=== PATIENT | female | born 1950 | race African-American/Black ===

== ENCOUNTER 2019-03-26 20:06 | Inpatient (IN) | payer MEDICAID, OTHER ==
[~2019-03-26] VITALS: Ht 160 cm; Wt 110.2 kg
[~2019-03-26 20:06] MED LIST: AMLO10TA88 PO; ARIP15TA2 PO; ASPI-1155 PO; DIVA-74 PO; GLYB5TAB7 PO; HYDR50TA3 PO; METO-544 PO; SIMV40TA5 PO; VALS320T2 PO
[2019-03-26 20:16] VITALS: BP_SYST 152
[2019-03-26] MEDS ORDERED: HAL5 PO (20:38)
[2019-03-26] MEDS ORDERED: BENZ1TAB7 PO (20:38)
[2019-03-26] MEDS ORDERED: DONE5TAB26 PO (20:38)
[2019-03-26] MEDS ORDERED: ISOS60TA4 PO (20:38)
[2019-03-26] MEDS ORDERED: HYDR-4039 PO (20:38)
[2019-03-26] MEDS ORDERED: FLUT1DIS3 IH (20:38)
[2019-03-26] MEDS ORDERED: LISI40TA4 PO (20:38)
[2019-03-26] MEDS ORDERED: SPIR50TA5 PO (20:38)
[2019-03-26] MEDS ORDERED: LABE100T5 PO (20:38)
[2019-03-26 20:43] LABS: BASOPHILS # (AUTO) 0.1 K/uL (0.0-0.2); EOSINOPHILS # (AUTO) 0.2 K/uL (0.0-0.4); HEMATOCRIT 37.4 % (36-48); HEMOGLOBIN 12.2 g/dL (12.0-16.0); LYMPHOCYTES # (AUTO) 1.8 K/uL (1.0-5.5); LYMPHOCYTES % (AUTO) 17.8 % (20.5-51.5); MEAN CORPUSCULAR HEMOGLOBIN 28 pg (27-31); MEAN CORPUSCULAR HGB CONC 33 % (32-36); MEAN CORPUSCULAR VOLUME 85 fL (79.0-98.0); MONOCYTES # (AUTO) 0.7 K/uL (0.0-1.0); MONOCYTES % (AUTO) 7.2 % (1.7-9.3); NEUTROPHILS # (AUTO) 7.1 K/uL (1.8-7.7); PLATELET COUNT (AUTO) 315 K/uL (130-430); RED BLOOD CELL COUNT(AUTO) 4.43 MIL/uL (4.2-6.2); RED CELL DISTRIBUTION WIDTH 14.6 % (9.0-15.0); WHITE BLOOD COUNT (AUTO) 9.9 K/uL (4.8-10.8)
[2019-03-26] MEDS ORDERED: NACL 0.9% 1,000 ML IV ONE (21:00)
[2019-03-26 21:08] LABS: CALCIUM 9.9 mg/dL (8.4-11.0); CREATININE 1.22 mg/dL (0.55-1.30)
[2019-03-26 21:13] LABS: ALBUMIN 3.6 g/dL (3.4-4.8); TOTAL BILIRUBIN 0.9 mg/dL (0.0-1.0)
[2019-03-26] MEDS ORDERED: hydrALAZINE HCL 20 MG/ML VIAL IVP ONE (21:45)
[2019-03-26 22:25] LABS: CKMB RELATIVE INDEX 1.2 (0.0-2.9); CREATINE KINASE MB 2.9 ng/mL (0-3.6)
[2019-03-27 00:50] LABS: BILIRUBIN,URINE 1+ (NEGATIVE); BLOOD, URINE NEGATIVE (NEGATIVE); CLARITY/URINE CLEAR (CLEAR); COLOR,URINE ORANGE (YELLOW); GLUCOSE,URINE 1+ (NEGATIVE); KETONES,URINE NEGATIVE (NEGATIVE); LEUKOCYTE ESTERASE ,URINE NEGATIVE (NEGATIVE); NITRITE, URINE NEGATIVE (NEGATIVE); PROTEIN URINE NEGATIVE (NEGATIVE); UROBILINOGEN,URINE 0.2 (0.2-1.0)
[2019-03-27] MEDS ORDERED: hydrALAZINE HCL 20 MG/ML VIAL IVP ONE ×2 (01:15→01:45)
[2019-03-27] MEDS ORDERED: ONDANSETRON HCL 4 MG/2 ML VIAL IVP ONE (02:15)
[2019-03-27] MEDS ORDERED: HAL5 PO (02:58)
[2019-03-27] MEDS ORDERED: ALBMDI INH (02:58)
[2019-03-27] MEDS ORDERED: INSU100I28 SQ (02:58)
[2019-03-27] MEDS ORDERED: INSU100V9 SQ (02:58)
[2019-03-27] MEDS ORDERED: FLUT1DIS3 IH (02:58)
[2019-03-27] MEDS ORDERED: LABETALOL HCL 200 MG in NS 250 ML IV PRN (03:45)
[2019-03-27] MEDS ORDERED: LABETALOL 100 MG/ 20ML VIAL ONE (03:58)
[2019-03-27 04:38] VITALS: BP_SYST 154
[2019-03-27 08:15] VITALS: BP_SYST 151
[2019-03-27] MEDS: LABETALOL HCL 100 MG TABLET PO SCH ×2 (08:39→22:37)
[2019-03-27] MEDS: LISINOPRIL 20 MG TABLET PO SCH (08:39)
[2019-03-27] MEDS: SPIRONOLACTONE 50 MG TABLET (ALDACTONE) PO SCH (08:40)
[2019-03-27] MEDS: BENZTROPINE MESYLATE 1 MG TABLET PO SCH ×2 (08:40→22:34)
[2019-03-27] MEDS: DONEPEZIL HCL 5 MG TABLET (ARICEPT) PO SCH (08:40)
[2019-03-27] MEDS: hydrALAZINE HCL 25 MG TABLET PO SCH ×4 (08:41→22:38)
[2019-03-27] MEDS: ISOSORBIDE MONONITRATE 30 MG TAB.ER.24H PO SCH (08:41)
[2019-03-27] MEDS: HALOPERIDOL 5 MG TABLET (HALDOL) PO SCH (08:42)
[2019-03-27] MEDS ORDERED: NON-FORMULARY MEDICATION (Donepezil Hcl 10 MG) PO SCH (09:00)
[2019-03-27] MEDS ORDERED: BENZTROPINE MESYLATE 1 MG PO SCH (09:00)
[2019-03-27] MEDS: ACETAMINOPHEN 650 MG/20.3 ML UDC PO PRN (10:54)
[2019-03-27 12:28] VITALS: BP_SYST 147
[2019-03-27] MEDS ORDERED: IPRATROPIUM/ALBUTEROL SULFATE 3 ML AMPUL.NEB (DUONEB) INH PRN (13:45)
[2019-03-27] MEDS: ASPIRIN 81 MG TABLET(ECOTRIN) PO ONE ×2 (14:31→14:37)
[2019-03-27 16:25] VITALS: BP_SYST 145
[2019-03-27 17:46] VITALS: BP_SYST 145
[2019-03-27 20:00] VITALS: BP_SYST 163
[2019-03-27] MEDS: cloNIDine HCL 0.1 MG TABLET PO PRN (20:41)
[2019-03-27] MEDS ORDERED: HALOPERIDOL 5 MG TABLET (HALDOL) PO SCH (21:00)
[2019-03-28 00:25] VITALS: BP_SYST 169
[2019-03-28] MEDS: ACETAMINOPHEN 650 MG/20.3 ML UDC PO PRN ×3 (02:44→16:26)
[2019-03-28] MEDS ORDERED: INSULIN ASPART 100 UNITS/ML, 10 ML VIAL (NovoLOG) SUBCUT PRN (02:45)
[2019-03-28] MEDS: cloNIDine HCL 0.1 MG TABLET PO PRN (02:50)
[2019-03-28] MEDS ORDERED: DEXTROSE 50% JECT 50 ML DISP.SYRIN IVP PRN (03:00)
[2019-03-28 06:02] LABS: BASOPHILS # (AUTO) 0.1 K/uL (0.0-0.2); BASOPHILS % (AUTO) 0.9 % (0.0-2.0); EOSINOPHILS # (AUTO) 0.3 K/uL (0.0-0.4); EOSINOPHILS % (AUTO) 2.9 % (0.0-4.0); HEMATOCRIT 35.8 % (36-48); HEMOGLOBIN 11.7 g/dL (12.0-16.0); LYMPHOCYTES # (AUTO) 2.1 K/uL (1.0-5.5); LYMPHOCYTES % (AUTO) 23.1 % (20.5-51.5); MEAN CORPUSCULAR HEMOGLOBIN 28 pg (27-31); MEAN CORPUSCULAR HGB CONC 33 % (32-36); MEAN CORPUSCULAR VOLUME 85 fL (79.0-98.0); MONOCYTES # (AUTO) 0.6 K/uL (0.0-1.0); MONOCYTES % (AUTO) 6.2 % (1.7-9.3); NEUTROPHILS % (AUTO) 66.9 % (40.0-70.0); PLATELET COUNT (AUTO) 292 K/uL (130-430); RED BLOOD CELL COUNT(AUTO) 4.22 MIL/uL (4.2-6.2); RED CELL DISTRIBUTION WIDTH 15.1 % (9.0-15.0)
[2019-03-28] MEDS: INSULIN LISPRO SLIDING SCALE 100 UNITS/ML VIAL (humaLOG) SUBCUT PRN ×4 (06:26→22:41)
[2019-03-28 06:37] VITALS: BP_SYST 152
[2019-03-28 06:52] LABS: CALCIUM 9.2 mg/dL (8.4-11.0); CREATININE 1.17 mg/dL (0.55-1.30); POTASSIUM 4.1 mmol/L (3.5-5.1)
[2019-03-28 08:00] VITALS: BP_SYST 157
[2019-03-28] MEDS: BENZTROPINE MESYLATE 1 MG TABLET PO SCH (08:34)
[2019-03-28] MEDS: LISINOPRIL 20 MG TABLET PO SCH (08:35)
[2019-03-28] MEDS: ISOSORBIDE MONONITRATE 30 MG TAB.ER.24H PO SCH (08:35)
[2019-03-28] MEDS: hydrALAZINE HCL 25 MG TABLET PO SCH ×4 (08:35→22:26)
[2019-03-28] MEDS: SPIRONOLACTONE 50 MG TABLET (ALDACTONE) PO SCH (08:36)
[2019-03-28] MEDS: DONEPEZIL HCL 5 MG TABLET (ARICEPT) PO SCH (08:36)
[2019-03-28] MEDS: HALOPERIDOL 5 MG TABLET (HALDOL) PO SCH (08:36)
[2019-03-28] MEDS: LABETALOL HCL 100 MG TABLET PO SCH ×2 (08:36→22:21)
[2019-03-28] MEDS ORDERED: INSULIN GLARGINE 100 UNITS/ML 10 ML VIAL SUBCUT ONE (08:45)
[2019-03-28] MEDS ORDERED: IBUPROFEN 400 MG TABLET PO PRN (08:45)
[2019-03-28] MEDS ORDERED: ASPIRIN 81 MG TABLET(ECOTRIN) PO SCH (09:00)
[2019-03-28 12:28] VITALS: BP_SYST 149
[2019-03-28 16:32] VITALS: BP_SYST 140
[2019-03-29 00:40] VITALS: BP_SYST 150
[2019-03-29] MEDS: ACETAMINOPHEN 650 MG/20.3 ML UDC PO PRN (01:20)
[2019-03-29 06:53] LABS: BASOPHILS # (AUTO) 0.1 K/uL (0.0-0.2); BASOPHILS % (AUTO) 0.9 % (0.0-2.0); EOSINOPHILS # (AUTO) 0.3 K/uL (0.0-0.4); EOSINOPHILS % (AUTO) 4.2 % (0.0-4.0); HEMATOCRIT 36.8 % (36-48); LYMPHOCYTES # (AUTO) 1.7 K/uL (1.0-5.5); LYMPHOCYTES % (AUTO) 20.8 % (20.5-51.5); MEAN CORPUSCULAR HEMOGLOBIN 28 pg (27-31); MEAN CORPUSCULAR HGB CONC 33 % (32-36); MEAN CORPUSCULAR VOLUME 85 fL (79.0-98.0); MONOCYTES # (AUTO) 0.4 K/uL (0.0-1.0); MONOCYTES % (AUTO) 5.6 % (1.7-9.3); NEUTROPHILS # (AUTO) 5.4 K/uL (1.8-7.7); NEUTROPHILS % (AUTO) 68.5 % (40.0-70.0); PLATELET COUNT (AUTO) 270 K/uL (130-430); RED BLOOD CELL COUNT(AUTO) 4.32 MIL/uL (4.2-6.2); RED CELL DISTRIBUTION WIDTH 15.1 % (9.0-15.0); WHITE BLOOD COUNT (AUTO) 7.9 K/uL (4.8-10.8)
[2019-03-29 07:01] LABS: ALBUMIN 3.3 g/dL (3.4-4.8); CALCIUM 9.5 mg/dL (8.4-11.0); CREATININE 1.08 mg/dL (0.55-1.30); POTASSIUM 3.8 mmol/L (3.5-5.1)
[2019-03-29 08:16] VITALS: BP_SYST 171
[2019-03-29] MEDS: HALOPERIDOL 5 MG TABLET (HALDOL) PO SCH (08:27)
[2019-03-29] MEDS: ISOSORBIDE MONONITRATE 30 MG TAB.ER.24H PO SCH (08:27)
[2019-03-29] MEDS: LABETALOL HCL 100 MG TABLET PO SCH (08:28)
[2019-03-29] MEDS: BENZTROPINE MESYLATE 1 MG TABLET PO SCH (08:29)
[2019-03-29] MEDS: hydrALAZINE HCL 25 MG TABLET PO SCH (08:29)
[2019-03-29] MEDS: DONEPEZIL HCL 5 MG TABLET (ARICEPT) PO SCH (08:29)
[2019-03-29] MEDS: SPIRONOLACTONE 50 MG TABLET (ALDACTONE) PO SCH (08:30)
[2019-03-29] MEDS: LISINOPRIL 20 MG TABLET PO SCH (08:32)
[2019-03-29] MEDS ORDERED: NIFEDIPINE 30 MG TAB.ER.24 PO SCH (09:00)
[2019-03-29 10:31] VITALS: BP_SYST 158
== END 2019-03-29 10:51 | disposition home or self-care (01) | DRG 305 ==
LOC: SED 20:06 → STU 03-27 02:58 → UNDODEPER 03-27 04:30
PROVIDERS: ADMIT Internal Medicine Hospice and Palliative Medicine; ATTEND Internal Medicine Hospice and Palliative Medicine
DX: I16.1 Hypertensive emergency (principal); I10 Essential (primary) hypertension; E78.5 Hyperlipidemia, unspecified; E11.40 Type 2 diabetes mellitus with diabetic neuropathy, unspecified; I25.10 Atherosclerotic heart disease of native coronary artery without angina pectoris; E03.9 Hypothyroidism, unspecified; F03.90 Unspecified dementia, unspecified severity, without behavioral disturbance, psychotic disturbance, mood disturbance, and anxiety; G25.0 Essential tremor; G40.909 Epilepsy, unspecified, not intractable, without status epilepticus; J44.9 Chronic obstructive pulmonary disease, unspecified; Z79.82 Long term (current) use of aspirin; Z86.73 Personal history of transient ischemic attack (TIA), and cerebral infarction without residual deficits; Z90.710 Acquired absence of both cervix and uterus; Z95.0 Presence of cardiac pacemaker; Z88.8 Allergy status to other drugs, medicaments and biological substances; Z79.899 Other long term (current) drug therapy; Z79.4 Long term (current) use of insulin
CPT/HCPCS: 36415; 70450-TC; 71045; 80053; 81003; 82550-TC; 82553-TC; 82607; 82962; 84443-TC; 84484; 85025; 87081; 93005; 95816; 96361; 96374; 96375; 96376; 97110-GP; 97116-GP; 97530-GP; 99285; G0378; J0360; J1815; J2405; J3490

== ENCOUNTER 2019-04-30 15:35 | Emergency (ER) | payer OTHER ==
[~2019-04-30] VITALS: Ht 160 cm; Wt 113.4 kg
[2019-04-30 15:35] VITALS: BP_SYST 161
[~2019-04-30 15:35] MED LIST changes: +ALBMDI INH; -AMLO10TA88 PO; -ARIP15TA2 PO; -ASPI-1155 PO; +BENZ1TAB76 PO; -DIVA-74 PO; +DONE5TAB26 PO; +FLUT1DIS3 IH; -GLYB5TAB7 PO; +HAL5 PO; +HYDR-4039 PO; -HYDR50TA3 PO; +INSU100I28 SQ; +INSU100V9 SQ; +ISOS60TA4 PO; +LABE100T5 PO; +LISI40TA4 PO; -METO-544 PO; -SIMV40TA5 PO; +SPIR50TA5 PO; -VALS320T2 PO
[2019-04-30 16:49] VITALS: BP_SYST 154
== END 2019-04-30 16:50 | disposition home or self-care (01) ==
LOC: SED 15:35
DX: T44.8X5A Adverse effect of centrally-acting and adrenergic-neuron-blocking agents, initial encounter (principal); E11.9 Type 2 diabetes mellitus without complications; F03.90 Unspecified dementia, unspecified severity, without behavioral disturbance, psychotic disturbance, mood disturbance, and anxiety; I10 Essential (primary) hypertension; Z88.6 Allergy status to analgesic agent; Z91.018 Allergy to other foods; Z79.899 Other long term (current) drug therapy; Y92.89 Other specified places as the place of occurrence of the external cause
CPT/HCPCS: 99283

== ENCOUNTER 2019-10-03 07:49 | Emergency (ER) | payer OTHER, MEDICAID ==
[~2019-10-03] VITALS: Ht 160 cm; Wt 90.7 kg
[2019-10-03 07:54] VITALS: BP_SYST 260
[2019-10-03] MEDS ORDERED: NACL 0.9% 1,000 ML IV ONE (08:44)
[2019-10-03] MEDS ORDERED: cloNIDine HCL 0.1 MG TABLET PO ONE ×2 (09:30→12:15)
[2019-10-03 09:38] LABS: BASOPHILS # (AUTO) 0.1 K/uL (0.0-0.2); EOSINOPHILS # (AUTO) 0.1 K/uL (0.0-0.4); EOSINOPHILS % (AUTO) 1.2 % (0.0-4.0); HEMATOCRIT 46.1 % (36-48); HEMOGLOBIN 15.1 g/dL (12.0-16.0); LYMPHOCYTES # (AUTO) 1.7 K/uL (1.0-5.5); LYMPHOCYTES % (AUTO) 16.5 % (20.5-51.5); MEAN CORPUSCULAR HEMOGLOBIN 28 pg (27-31); MEAN CORPUSCULAR HGB CONC 33 % (32-36); MEAN CORPUSCULAR VOLUME 85 fL (79.0-98.0); MONOCYTES # (AUTO) 0.4 K/uL (0.0-1.0); MONOCYTES % (AUTO) 3.8 % (1.7-9.3); NEUTROPHILS % (AUTO) 77.5 % (40.0-70.0); PLATELET COUNT (AUTO) 246 K/uL (130-430); RED BLOOD CELL COUNT(AUTO) 5.44 MIL/uL (4.2-6.2); RED CELL DISTRIBUTION WIDTH 14.1 % (9.0-15.0); WHITE BLOOD COUNT (AUTO) 10.4 K/uL (4.8-10.8)
[2019-10-03 09:48] LABS: ANION GAP 8 (5-15); CALCIUM 9.6 mg/dL (8.4-11.0); CHLORIDE 97 mmol/L (98-107); CREATININE 0.97 mg/dL (0.55-1.30); GLUCOSE 251 mg/dL (70-99); POTASSIUM 4.4 mmol/L (3.5-5.1); SODIUM SERUM 135 mmol/L (136-145); UREA NITROGEN, BLOOD 12 mg/dL (8-21)
[2019-10-03 09:49] LABS: GFR AFRICAN AMERICAN 73 mL/min (>90)
[2019-10-03 09:51] LABS: INR 0.9 (0.8-1.2); PROTHROMBIN TIME 9.2 SECS (9.5-12.5)
[2019-10-03 09:52] LABS: ALANINE AMINOTRANSFERASE 45 U/L (12-78); ALBUMIN 3.9 g/dL (3.4-4.8); ASPARTATE AMINOTRANSFERASE 33 U/L (10-37); LIPASE 48 U/L (73-393); TOTAL BILIRUBIN 0.7 mg/dL (0.0-1.0)
[2019-10-03 09:55] LABS: ALCOHOL, BLOOD < 3 mg/dL (<10)
[2019-10-03 14:47] VITALS: BP_SYST 173
== END 2019-10-03 14:43 | disposition home or self-care (01) ==
LOC: SED 07:49
DX: F44.4 Conversion disorder with motor symptom or deficit (principal); I10 Essential (primary) hypertension; Z91.018 Allergy to other foods; Z88.6 Allergy status to analgesic agent; Z79.899 Other long term (current) drug therapy
CPT/HCPCS: 36415; 70450; 71045; 80053; 83605; 83690; 84443; 84480; 85025; 85610; 85730; 87040; 93005; 99284; G0481; G0482; J7030; 99285

== ENCOUNTER 2023-07-16 17:13 | Inpatient (IN) | payer OTHER, MEDICAID ==
[~2023-07-16] VITALS: Ht 160 cm; Wt 117.9 kg
[~2023-07-16 17:13] MED LIST changes: +BENZ1TAB7 PO; -BENZ1TAB76 PO; +DONE-49 PO; -DONE5TAB26 PO; -ISOS60TA4 PO; +ISOS60TA71 PO; -LABE100T5 PO; +LABE100T8 PO; +LISI40TA13 PO; -LISI40TA4 PO
[2023-07-16 17:17] VITALS: PULSE 94; RESP 20; TEMP 97.5; O2SAT 96
[2023-07-16 18:46] LABS: BASOPHILS # (AUTO) 0.1 K/uL (0.0-0.2); BASOPHILS % (AUTO) 0.8 % (0.0-2.0); EOSINOPHILS # (AUTO) 0.3 K/uL (0.0-0.4); EOSINOPHILS % (AUTO) 2.2 % (0.0-4.0); HEMATOCRIT 40.7 % (36-48); HEMOGLOBIN 13.2 g/dL (12.0-16.0); LYMPHOCYTES # (AUTO) 3.1 K/uL (1.0-5.5); LYMPHOCYTES % (AUTO) 25.2 % (20.5-51.5); MEAN CORPUSCULAR HEMOGLOBIN 27 pg (27-31); MEAN CORPUSCULAR HGB CONC 32 % (32-36); MEAN CORPUSCULAR VOLUME 83 fL (79.0-98.0); MONOCYTES # (AUTO) 0.7 K/uL (0.0-1.0); MONOCYTES % (AUTO) 5.8 % (1.7-9.3); NEUTROPHILS # (AUTO) 8.1 K/uL (1.8-7.7); PLATELET COUNT (AUTO) 247 K/uL (130-430); RED BLOOD CELL COUNT(AUTO) 4.89 MIL/uL (4.2-6.2); WHITE BLOOD COUNT (AUTO) 12.3 K/uL (4.8-10.8)
[2023-07-16] MEDS ORDERED: cloNIDine HCL 0.1 MG TABLET PO ONE (19:00)
[2023-07-16] MEDS ORDERED: LORA-259 PO (19:03)
[2023-07-16] MEDS ORDERED: DAPA10TA PO (19:03)
[2023-07-16] MEDS ORDERED: CLOP75TA32 PO (19:03)
[2023-07-16] MEDS ORDERED: ATOR-1 PO (19:03)
[2023-07-16] MEDS ORDERED: DIVA500T4 PO (19:03)
[2023-07-16] MEDS ORDERED: NIFE90TA PO (19:03)
[2023-07-16] MEDS ORDERED: FAMO20TA8 PO (19:03)
[2023-07-16] MEDS ORDERED: CLON0.1T PO (19:03)
[2023-07-16 19:14] LABS: INR 0.9 (0.8-1.2); PROTHROMBIN TIME 9.6 SECS (9.5-12.5)
[2023-07-16 19:22] LABS: ANION GAP 8 (5-15); CALCIUM 9.2 mg/dL (8.4-11.0); CARBON DIOXIDE 27 mmol/L (23-29); CHLORIDE 103 mmol/L (98-107); CREATININE 1.02 mg/dL (0.55-1.30); GLUCOSE 152 mg/dL (74-106); SODIUM SERUM 138 mmol/L (136-145); UREA NITROGEN, BLOOD 20 mg/dL (8-21)
[2023-07-16 19:27] LABS: ALANINE AMINOTRANSFERASE 27 U/L (12-78); ALBUMIN 3.2 g/dL (3.4-4.8); ASPARTATE AMINOTRANSFERASE 22 U/L (10-37); BILIRUBIN,DIRECT 0.1 mg/dL (0.0-0.3); TOTAL BILIRUBIN 0.2 mg/dL (0.0-1.0)
[2023-07-16] MEDS ORDERED: NACL 0.9% 1,000 ML IV ONE (19:45)
[2023-07-16 20:08] LABS: BILIRUBIN,URINE NEGATIVE (NEGATIVE); BLOOD, URINE NEGATIVE (NEGATIVE); CLARITY/URINE CLEAR (CLEAR); COLOR,URINE YELLOW (YELLOW); GLUCOSE,URINE 3+ (NEGATIVE); KETONES,URINE NEGATIVE (NEGATIVE); LEUKOCYTE ESTERASE ,URINE NEGATIVE (NEGATIVE); NITRITE, URINE NEGATIVE (NEGATIVE); PROTEIN URINE NEGATIVE (NEGATIVE); UROBILINOGEN,URINE 0.2 (0.2-1.0)
[2023-07-16 20:21] LABS: BACTERIA,URINE None Seen /HPF (None Seen)
[2023-07-16] MEDS: NACL 0.9% 1,000 ML IV SCH (20:45)
[2023-07-16] MEDS ORDERED: DEXTROSE 50% JECT 50 ML DISP.SYRIN IVP PRN (21:15)
[2023-07-16] MEDS ORDERED: ONDANSETRON HCL 4 MG/2 ML VIAL IVP PRN (21:15)
[2023-07-16] MEDS ORDERED: MORPHINE 2 MG/ML INJ. SYRINGE IVP PRN ×2 (21:15)
[2023-07-16] MEDS: METOPROLOL TARTRATE 25 MG TABLET PO SCH (21:15)
[2023-07-16] MEDS ORDERED: MAGNESIUM SULFATE 50 ML IV PRN (21:15)
[2023-07-16] MEDS ORDERED: POTASSIUM CHLORIDE 20 MEQ TABLET.ER PO PRN (21:15)
[2023-07-16] MEDS ORDERED: ACETAMINOPHEN 325 MG TABLET PO PRN (21:15)
[2023-07-16] MEDS ORDERED: ZOLPIDEM TARTRATE 5 MG TABLET PO PRN (21:15)
[2023-07-16] MEDS ORDERED: NALOXONE HCL 0.4 MG/ML AMP (NARCAN) IVP PRN ×2 (21:15)
[2023-07-16] MEDS ORDERED: LORazepam 2 MG/ML VIAL IVP PRN (21:15)
[2023-07-16] MEDS ORDERED: DOCUSATE SODIUM 100 MG CAPSULE PO PRN (21:15)
[2023-07-16] MEDS ORDERED: MUPIROCIN 2% TOPICAL OINTMENT 22 GM NS PRN (21:15)
[2023-07-17] VITALS (7 sets, daily range): BP systolic 135–155; PULSE 74–83; RESP 16–20; TEMP 97.3–99.3; O2SAT 95–98
[2023-07-17 06:04] LABS: BASOPHILS # (AUTO) 0.1 K/uL (0.0-0.2); BASOPHILS % (AUTO) 0.6 % (0.0-2.0); EOSINOPHILS # (AUTO) 0.4 K/uL (0.0-0.4); EOSINOPHILS % (AUTO) 4.2 % (0.0-4.0); HEMOGLOBIN 12.7 g/dL (12.0-16.0); LYMPHOCYTES # (AUTO) 2.7 K/uL (1.0-5.5); LYMPHOCYTES % (AUTO) 26.3 % (20.5-51.5); MEAN CORPUSCULAR HEMOGLOBIN 27 pg (27-31); MEAN CORPUSCULAR HGB CONC 33 % (32-36); MEAN CORPUSCULAR VOLUME 83 fL (79.0-98.0); MONOCYTES # (AUTO) 0.8 K/uL (0.0-1.0); MONOCYTES % (AUTO) 7.5 % (1.7-9.3); NEUTROPHILS # (AUTO) 6.2 K/uL (1.8-7.7); NEUTROPHILS % (AUTO) 61.4 % (40.0-70.0); PLATELET COUNT (AUTO) 244 K/uL (130-430); RED BLOOD CELL COUNT(AUTO) 4.67 MIL/uL (4.2-6.2); RED CELL DISTRIBUTION WIDTH 15.8 % (9.0-15.0); WHITE BLOOD COUNT (AUTO) 10.1 K/uL (4.8-10.8)
[2023-07-17 06:12] LABS: ANION GAP 7 (5-15); CALCIUM 9.1 mg/dL (8.4-11.0); CARBON DIOXIDE 30 mmol/L (23-29); CHLORIDE 104 mmol/L (98-107); GLUCOSE 162 mg/dL (74-106); POTASSIUM 3.9 mmol/L (3.5-5.1); SODIUM SERUM 141 mmol/L (136-145); UREA NITROGEN, BLOOD 18 mg/dL (8-21)
[2023-07-17] MEDS: DIVALPROEX SODIUM 500 MG TAB.SR.24H (DEPAKOTE ER) PO SCH (08:42)
[2023-07-17] MEDS: CLOPIDOGREL BISULFATE 75 MG TABLET PO SCH (08:42)
[2023-07-17] MEDS: METOPROLOL TARTRATE 25 MG TABLET PO SCH ×2 (08:42→20:32)
[2023-07-17] MEDS ORDERED: FLUTICASONE 250 mCg/SALMETEROL 50 mCg DISKUS W.DEV IH SCH (09:00)
[2023-07-17] MEDS: ISOSORBIDE MONONITRATE 30 MG TAB.ER.24H PO SCH (09:15)
[2023-07-17] MEDS: SPIRONOLACTONE 50 MG TABLET (ALDACTONE) PO SCH (09:16)
[2023-07-17] MEDS: HALOPERIDOL 5 MG TABLET (HALDOL) PO SCH (09:17)
[2023-07-17] MEDS: lisinopriL 20 MG TABLET PO SCH (09:18)
[2023-07-17] MEDS: ATORVASTATIN 20 MG TABLET PO SCH (09:18)
[2023-07-17] MEDS: NACL 0.9% 1,000 ML IV SCH (11:03)
[2023-07-17] MEDS: ALBUTEROL SULFATE 0.083% 2.5 MG/3 ML VIAL.NEB INH SCH ×2 (13:40→19:58)
[2023-07-17] MEDS: hydrALAZINE HCL 25 MG TABLET PO SCH ×3 (14:39→20:31)
[2023-07-17] MEDS: INSULIN LISPRO SLIDING SCALE 100 UNITS/ML, 3 ML VIAL (humaLOG) SUBCUT PRN ×2 (17:12→20:39)
[2023-07-17] MEDS: BUDESONIDE 0.5 MG/2 ML AMPUL.NEB INH SCH (19:30)
[2023-07-18] VITALS (9 sets, daily range): BP systolic 149–174; PULSE 78–96; RESP 16–19; TEMP 97.3–99.5; O2SAT 97–99
[2023-07-18] MEDS: NACL 0.9% 1,000 ML IV SCH ×2 (00:07→17:44)
[2023-07-18] MEDS: ALBUTEROL SULFATE 0.083% 2.5 MG/3 ML VIAL.NEB INH SCH ×4 (01:00→18:59)
[2023-07-18 06:28] LABS: BASOPHILS # (AUTO) 0.1 K/uL (0.0-0.2); BASOPHILS % (AUTO) 0.5 % (0.0-2.0); EOSINOPHILS # (AUTO) 0.5 K/uL (0.0-0.4); EOSINOPHILS % (AUTO) 4.2 % (0.0-4.0); HEMATOCRIT 41.6 % (36-48); HEMOGLOBIN 13.4 g/dL (12.0-16.0); LYMPHOCYTES # (AUTO) 2.4 K/uL (1.0-5.5); LYMPHOCYTES % (AUTO) 19.5 % (20.5-51.5); MEAN CORPUSCULAR HEMOGLOBIN 27 pg (27-31); MEAN CORPUSCULAR HGB CONC 32 % (32-36); MEAN CORPUSCULAR VOLUME 83 fL (79.0-98.0); MONOCYTES # (AUTO) 0.8 K/uL (0.0-1.0); MONOCYTES % (AUTO) 6.3 % (1.7-9.3); NEUTROPHILS # (AUTO) 8.6 K/uL (1.8-7.7); NEUTROPHILS % (AUTO) 69.5 % (40.0-70.0); PLATELET COUNT (AUTO) 244 K/uL (130-430); RED CELL DISTRIBUTION WIDTH 15.7 % (9.0-15.0); WHITE BLOOD COUNT (AUTO) 12.4 K/uL (4.8-10.8)
[2023-07-18] MEDS: BUDESONIDE 0.5 MG/2 ML AMPUL.NEB INH SCH ×2 (07:00→19:00)
[2023-07-18 07:03] LABS: ANION GAP 9 (5-15); CARBON DIOXIDE 28 mmol/L (23-29); CHLORIDE 103 mmol/L (98-107); CREATININE 0.92 mg/dL (0.55-1.30); GLUCOSE 125 mg/dL (74-106); POTASSIUM 4.1 mmol/L (3.5-5.1); SODIUM SERUM 140 mmol/L (136-145); UREA NITROGEN, BLOOD 15 mg/dL (8-21)
[2023-07-18] MEDS: CLOPIDOGREL BISULFATE 75 MG TABLET PO SCH (09:12)
[2023-07-18] MEDS: SPIRONOLACTONE 50 MG TABLET (ALDACTONE) PO SCH (09:12)
[2023-07-18] MEDS: HALOPERIDOL 5 MG TABLET (HALDOL) PO SCH (09:12)
[2023-07-18] MEDS: lisinopriL 20 MG TABLET PO SCH (09:13)
[2023-07-18] MEDS: ISOSORBIDE MONONITRATE 30 MG TAB.ER.24H PO SCH (09:14)
[2023-07-18] MEDS: METOPROLOL TARTRATE 25 MG TABLET PO SCH ×2 (09:14→22:28)
[2023-07-18] MEDS: ATORVASTATIN 20 MG TABLET PO SCH (09:15)
[2023-07-18] MEDS: DIVALPROEX SODIUM 500 MG TAB.SR.24H (DEPAKOTE ER) PO SCH (09:15)
[2023-07-18] MEDS: hydrALAZINE HCL 25 MG TABLET PO SCH ×4 (09:15→22:27)
[2023-07-18] MEDS: INSULIN LISPRO SLIDING SCALE 100 UNITS/ML, 3 ML VIAL (humaLOG) SUBCUT PRN ×2 (12:33→22:31)
[2023-07-19] MEDS: ALBUTEROL SULFATE 0.083% 2.5 MG/3 ML VIAL.NEB INH SCH ×3 (01:09→13:24)
[2023-07-19 01:16] VITALS: O2SAT 96
[2023-07-19 01:44] VITALS: BP_SYST 160; PULSE 83; RESP 18; TEMP 98.1; O2SAT 96
[2023-07-19] MEDS: NACL 0.9% 1,000 ML IV SCH (05:34)
[2023-07-19] MEDS: INSULIN LISPRO SLIDING SCALE 100 UNITS/ML, 3 ML VIAL (humaLOG) SUBCUT PRN ×2 (06:38→14:57)
[2023-07-19] MEDS: BUDESONIDE 0.5 MG/2 ML AMPUL.NEB INH SCH (07:00)
[2023-07-19 07:01] LABS: ANION GAP 7 (5-15); CALCIUM 9.1 mg/dL (8.4-11.0); CARBON DIOXIDE 28 mmol/L (23-29); CHLORIDE 100 mmol/L (98-107); GLUCOSE 160 mg/dL (74-106); POTASSIUM 4.1 mmol/L (3.5-5.1); SODIUM SERUM 135 mmol/L (136-145); UREA NITROGEN, BLOOD 17 mg/dL (8-21)
[2023-07-19 07:03] LABS: BASOPHILS # (AUTO) 0.1 K/uL (0.0-0.2); BASOPHILS % (AUTO) 0.5 % (0.0-2.0); EOSINOPHILS # (AUTO) 0.1 K/uL (0.0-0.4); EOSINOPHILS % (AUTO) 0.7 % (0.0-4.0); HEMATOCRIT 39.8 % (36-48); HEMOGLOBIN 12.9 g/dL (12.0-16.0); LYMPHOCYTES # (AUTO) 1.6 K/uL (1.0-5.5); LYMPHOCYTES % (AUTO) 11.5 % (20.5-51.5); MEAN CORPUSCULAR HEMOGLOBIN 27 pg (27-31); MEAN CORPUSCULAR HGB CONC 33 % (32-36); MEAN CORPUSCULAR VOLUME 83 fL (79.0-98.0); MONOCYTES # (AUTO) 0.7 K/uL (0.0-1.0); MONOCYTES % (AUTO) 5.2 % (1.7-9.3); NEUTROPHILS # (AUTO) 11.6 K/uL (1.8-7.7); NEUTROPHILS % (AUTO) 82.1 % (40.0-70.0); PLATELET COUNT (AUTO) 244 K/uL (130-430); RED CELL DISTRIBUTION WIDTH 15.5 % (9.0-15.0); WHITE BLOOD COUNT (AUTO) 14.1 K/uL (4.8-10.8)
[2023-07-19 07:19] VITALS: O2SAT 97
[2023-07-19] MEDS: hydrALAZINE HCL 25 MG TABLET PO SCH ×3 (09:58→14:47)
[2023-07-19] MEDS: ATORVASTATIN 20 MG TABLET PO SCH (09:58)
[2023-07-19] MEDS: CLOPIDOGREL BISULFATE 75 MG TABLET PO SCH (09:59)
[2023-07-19] MEDS: lisinopriL 20 MG TABLET PO SCH (09:59)
[2023-07-19] MEDS: ISOSORBIDE MONONITRATE 30 MG TAB.ER.24H PO SCH (09:59)
[2023-07-19] MEDS: HALOPERIDOL 5 MG TABLET (HALDOL) PO SCH (09:59)
[2023-07-19] MEDS: METOPROLOL TARTRATE 25 MG TABLET PO SCH (10:00)
[2023-07-19] MEDS: SPIRONOLACTONE 50 MG TABLET (ALDACTONE) PO SCH (10:00)
[2023-07-19] MEDS: DIVALPROEX SODIUM 500 MG TAB.SR.24H (DEPAKOTE ER) PO SCH (10:00)
[2023-07-19 11:11] VITALS: BP_SYST 146; PULSE 80; RESP 18; TEMP 97.6; O2SAT 95
[2023-07-19 13:24] VITALS: O2SAT 97
[2023-07-19 16:07] VITALS: BP_SYST 147; PULSE 80; RESP 18; TEMP 97.7; O2SAT 95
== END 2023-07-19 18:40 | DRG 914 ==
LOC: SED 17:13 → STU 20:42 → SMU 07-18 10:00
PROVIDERS: ADMIT General Practice; ATTEND General Practice
DX: S09.90XA Unspecified injury of head, initial encounter (principal); E44.1 Mild protein-calorie malnutrition; Z68.42 Body mass index [BMI] 45.0-49.9, adult; I10 Essential (primary) hypertension; E11.9 Type 2 diabetes mellitus without complications; R26.81 Unsteadiness on feet; J44.9 Chronic obstructive pulmonary disease, unspecified; I25.10 Atherosclerotic heart disease of native coronary artery without angina pectoris; F20.9 Schizophrenia, unspecified; F31.9 Bipolar disorder, unspecified; G30.9 Alzheimer's disease, unspecified; E78.5 Hyperlipidemia, unspecified; F02.80 Dementia in other diseases classified elsewhere, unspecified severity, without behavioral disturbance, psychotic disturbance, mood disturbance, and anxiety; Z88.6 Allergy status to analgesic agent; W21.11XA Struck by baseball bat, initial encounter; Y93.89 Activity, other specified; Y92.89 Other specified places as the place of occurrence of the external cause; Y99.8 Other external cause status
CPT/HCPCS: 36415; 70450-TC; 71045; 76376; 80048; 80076; 80164; 81000; 81001; 81015; 82962; 83037; 83605; 83735; 85025; 85379; 85610-TC; 85730-TC; 87081; 93005; 94640; 94760; 97110-GP; 97116-GP; 97530-GP; 99285; G0378; J2270

== ENCOUNTER 2023-08-03 22:23 | Emergency (ER) | payer OTHER, MEDICAID ==
[~2023-08-03] VITALS: Ht 160 cm; Wt 108.9 kg
[~2023-08-03 22:23] MED LIST changes: +ATOR-1 PO; +CLON0.1T PO; +CLOP75TA32 PO; +DAPA10TA PO; +DIVA500T4 PO; +FAMO20TA8 PO; +LORA-259 PO; +NIFE90TA PO
[2023-08-03 22:30] VITALS: BP_SYST 127; PULSE 77; RESP 18; TEMP 97.6; TEMP 98.9; O2SAT 97
[2023-08-03 23:47] LABS: BASOPHILS # (AUTO) 0.1 K/uL (0.0-0.2); BASOPHILS % (AUTO) 0.8 % (0.0-2.0); EOSINOPHILS # (AUTO) 0.4 K/uL (0.0-0.4); EOSINOPHILS % (AUTO) 3.6 % (0.0-4.0); HEMATOCRIT 37.6 % (36-48); HEMOGLOBIN 12.3 g/dL (12.0-16.0); LYMPHOCYTES # (AUTO) 2.7 K/uL (1.0-5.5); LYMPHOCYTES % (AUTO) 26.7 % (20.5-51.5); MEAN CORPUSCULAR HEMOGLOBIN 27 pg (27-31); MEAN CORPUSCULAR HGB CONC 33 % (32-36); MEAN CORPUSCULAR VOLUME 84 fL (79.0-98.0); MONOCYTES # (AUTO) 0.8 K/uL (0.0-1.0); MONOCYTES % (AUTO) 7.9 % (1.7-9.3); NEUTROPHILS # (AUTO) 6.1 K/uL (1.8-7.7); PLATELET COUNT (AUTO) 257 K/uL (130-430); RED BLOOD CELL COUNT(AUTO) 4.51 MIL/uL (4.2-6.2); RED CELL DISTRIBUTION WIDTH 15.9 % (9.0-15.0)
[2023-08-03 23:53] LABS: ANION GAP 8 (5-15); CARBON DIOXIDE 28 mmol/L (23-29); CHLORIDE 105 mmol/L (98-107); CREATININE 1.08 mg/dL (0.55-1.30); GLUCOSE 152 mg/dL (74-106); POTASSIUM 3.8 mmol/L (3.5-5.1); SODIUM SERUM 141 mmol/L (136-145); UREA NITROGEN, BLOOD 23 mg/dL (8-21)
[2023-08-04] LABS: ALANINE AMINOTRANSFERASE 35 U/L (12-78); ALBUMIN 2.8 g/dL (3.4-4.8); ASPARTATE AMINOTRANSFERASE 29 U/L (10-37); BILIRUBIN,DIRECT 0.1 mg/dL (0.0-0.3); CREATINE KINASE, TOTAL 88 U/L (26-192); TOTAL BILIRUBIN 0.3 mg/dL (0.0-1.0); TOTAL PROTEIN, SERUM 6.5 g/dL (6.4-8.3)
[2023-08-04] MEDS ORDERED: iohexoL 350 mgI/mL, 100 ML INFUS..BTL IV ONE
[2023-08-04] MEDS ORDERED: KETOROLAC TROMETHAMINE 30 MG VIAL IVP ONE (01:00)
[2023-08-04 09:01] VITALS: BP_SYST 164; PULSE 78; RESP 18; TEMP 97.3; O2SAT 98
== END 2023-08-04 08:28 | disposition home or self-care (01) ==
LOC: SED 22:23
DX: Z00.00 Encounter for general adult medical examination without abnormal findings (principal); R79.89 Other specified abnormal findings of blood chemistry; E11.9 Type 2 diabetes mellitus without complications; I10 Essential (primary) hypertension; Z72.3 Lack of physical exercise; Z79.4 Long term (current) use of insulin; Z88.6 Allergy status to analgesic agent; Z88.7 Allergy status to serum and vaccine; Z91.018 Allergy to other foods; Z79.899 Other long term (current) drug therapy
CPT/HCPCS: 99285; 71275; 71045; 80076; 80048; 82550; 85025; 85379; 84484; 36415; 96374; 76376; Q9967; J1885

== ENCOUNTER 2023-08-04 08:23 | Emergency (ER) | payer OTHER, MEDICAID ==
[~2023-08-04] VITALS: Ht 160 cm; Wt 108.9 kg
[2023-08-04 08:25] VITALS: BP_SYST 154; PULSE 72; RESP 20; TEMP 98.1; O2SAT 95
[2023-08-04] MEDS ORDERED: LISINOPRIL 10 MG TABLET (PRINIVIL) PO ONE (08:30)
[2023-08-04] MEDS ORDERED: LABETALOL HCL 100 MG TABLET PO ONE (09:15)
[2023-08-04 11:00] VITALS: BP_SYST 124; PULSE 78; RESP 18; TEMP 98.3; O2SAT 97
== END 2023-08-04 11:00 ==
LOC: SED 08:23
DX: R03.0 Elevated blood-pressure reading, without diagnosis of hypertension (principal); E11.9 Type 2 diabetes mellitus without complications; I10 Essential (primary) hypertension; K21.9 Gastro-esophageal reflux disease without esophagitis; J44.9 Chronic obstructive pulmonary disease, unspecified; Z79.4 Long term (current) use of insulin; Z88.6 Allergy status to analgesic agent; Z88.7 Allergy status to serum and vaccine; Z91.018 Allergy to other foods; Z79.899 Other long term (current) drug therapy
CPT/HCPCS: 99285